=== PATIENT | female | born 1975 | race Caucasian/White ===

== ENCOUNTER 2017-09-20 13:05 | Emergency (ER) | payer OTHER ==
[~2017-09-20] VITALS: Ht 162.5 cm; Wt 74.8 kg
[~2017-09-20 13:05] MED LIST: BACTRIM DS 8001 TA1 PO; CLARITHROMYCIN500 MG PO; COUMADIN7.5 M1 PO; HYDROCODONE BIT1 T11 PO; KEFLEX500 MG PO; MOTRIN800 MG PO; NAPROSYN500 MG PO; RINGWORM14.2 GM TP; Septra Ds 800 M1 TAB PO; TRAMADOL HCL50 MG PO; VICODIN 5/500 505 MG PO; VISTARIL25 MG PO
[2017-09-20 13:53] LABS: BASO # 0.1 10*3/uL (0.0-0.1); BASO % 0.6 % (0.0-1.0); EOS # 0.1 10*3/uL (0.0-0.4); HEMATOCRIT 40.6 % (37.0-47.0); HEMOGLOBIN 13.7 g/dl (12.0-16.0); LYMPH # 2.5 10*3/uL (1.3-4.4); LYMPH % 24.8 % (27.0-41.0); MEAN CELL VOLUME 93.3 fl (81.0-99.0); MEAN CORPUSCULAR HGB 31.5 pg (27.0-31.0); MEAN CORPUSCULAR HGB CONC 33.7 g/dl (33.0-37.0); MEAN PLATELET VOLUME 10.3 fl (9.6-12.3); MONO % 9.9 % (3.0-9.0); NEUT # 6.3 10*3/uL (2.3-7.9); NEUT % 63.4 % (47.0-73.0); PLATELET COUNT AUTOMATED 269 10*3/uL (130-400); RED BLOOD COUNT 4.35 10*6/uL (4.10-5.10); RED CELL DISTRI WIDTH 14.3 % (0-14.5)
[2017-09-20 14:04] LABS: ACT PARTIAL THROMBO TIME 24.4 SECONDS (20.8-31.5)
[2017-09-20 14:09] LABS: ALBUMIN 3.7 gm/dl (3.1-4.5); ALKALINE PHOSPHATASE 137 U/L (45-117); BUN 10 mg/dl (7-24); CHLORIDE 105 mmol/L (98-107); CREATININE 0.82 mg/dL (0.55-1.02); LIPASE 124 U/L (73-393); POTASSIUM 3.6 mmol/L (3.5-5.1); SGOT/AST 20 IU/L (3-35); SGPT/ALT 29 U/L (12-78); SODIUM 138 mmol/L (136-145); TOTAL PROTEIN 7.5 gm/dL (6.4-8.2)
[2017-09-20 14:12] LABS: TROPONIN I < 0.015 ng/ml (<0.045)
[2017-09-20 14:27] LABS: BETA-HCG, QUANT < 1.0 mIU/mL (1-3)
[2017-09-20 18:05] VITALS: BP 123/83
[2017-09-20] MEDS ORDERED: Motrin,Rufen800 MG PO (18:18)
[2017-09-20] MEDS ORDERED: CYCLOBENZAPRINE10 MG PO (18:18)
== END 2017-09-20 18:36 | disposition home or self-care (01) ==
LOC: ED 13:05
PROVIDERS: Emergency Medicine
DX: S29.011A Strain of muscle and tendon of front wall of thorax, initial encounter (principal); F17.200 Nicotine dependence, unspecified, uncomplicated; F10.10 Alcohol abuse, uncomplicated; X58.XXXA Exposure to other specified factors, initial encounter; Y93.89 Activity, other specified; Y92.89 Other specified places as the place of occurrence of the external cause; Y99.0 Civilian activity done for income or pay

== ENCOUNTER → 2017-09-21 | Outpatient (CLI) | payer OTHER ==
[~2017-09-21] MED LIST changes: +CYCLOBENZAPRINE10 MG PO; +Motrin,Rufen800 MG PO
== END | disposition home or self-care (01) ==
LOC: ORTHO
DX: M25.562 Pain in left knee (principal)

== ENCOUNTER 2017-10-16 08:00 | Emergency (ER) | payer OTHER ==
[~2017-10-16] VITALS: Ht 162.5 cm; Wt 72.6 kg
[~2017-10-16 08:00] MED LIST changes: -IBUPROFEN600 MG PO; -TOPCARE PAIN R500 MG PO
[2017-10-16 08:06] VITALS: BP 107/78
[2017-10-16] MEDS ORDERED: TOPCARE PAIN R500 MG PO (10:53)
[2017-10-16] MEDS ORDERED: IBUPROFEN600 MG PO (10:53)
== END 2017-10-16 10:22 | disposition home or self-care (01) ==
LOC: ED 08:00
DX: S82.52XA Displaced fracture of medial malleolus of left tibia, initial encounter for closed fracture (principal); F17.200 Nicotine dependence, unspecified, uncomplicated; W00.0XXA Fall on same level due to ice and snow, initial encounter; Y93.89 Activity, other specified; Y92.89 Other specified places as the place of occurrence of the external cause; Y99.8 Other external cause status

== ENCOUNTER → 2017-10-16 | Outpatient (CLI) | payer OTHER ==
[~2017-10-16] MED LIST changes: +IBUPROFEN600 MG PO; +TOPCARE PAIN R500 MG PO
== END | disposition home or self-care (01) ==
LOC: ORTHO 14:32 → LAB 14:32
DX: E55.9 Vitamin D deficiency, unspecified (principal)

== ENCOUNTER → 2017-10-22 | Outpatient (CLI) | payer OTHER ==
[~2017-10-22] MED LIST changes: +IBUPROFEN600 MG PO; +TOPCARE PAIN R500 MG PO
== END | disposition home or self-care (01) ==
LOC: CT 07:47
DX: S82.52XA Displaced fracture of medial malleolus of left tibia, initial encounter for closed fracture (principal); X58.XXXA Exposure to other specified factors, initial encounter; Y93.89 Activity, other specified; Y92.89 Other specified places as the place of occurrence of the external cause; Y99.8 Other external cause status

== ENCOUNTER 2018-02-16 10:48 | Emergency (ER) | payer OTHER ==
[~2018-02-16] VITALS: Ht 162.5 cm; Wt 74.8 kg
[2018-02-16 10:51] VITALS: BP 124/85
[2018-02-16] MEDS ORDERED: IBU800 MG PO (12:27)
== END 2018-02-16 12:06 | disposition home or self-care (01) ==
LOC: ED 10:48
DX: S93.402A Sprain of unspecified ligament of left ankle, initial encounter (principal); Z90.49 Acquired absence of other specified parts of digestive tract; Z98.51 Tubal ligation status; Z79.899 Other long term (current) drug therapy; W10.9XXA Fall (on) (from) unspecified stairs and steps, initial encounter; Y93.89 Activity, other specified; Y92.89 Other specified places as the place of occurrence of the external cause; Y99.9 Unspecified external cause status

== ENCOUNTER 2018-03-17 16:17 | Emergency (ER) | payer OTHER ==
[~2018-03-17] VITALS: Ht 160 cm; Wt 74.8 kg
[~2018-03-17 16:17] MED LIST changes: +IBU800 MG PO
[2018-03-17 16:24] VITALS: BP 127/87
== END 2018-03-17 18:23 | disposition home or self-care (01) ==
LOC: ED 16:17
DX: M25.572 Pain in left ankle and joints of left foot (principal); R60.0 Localized edema; Z90.49 Acquired absence of other specified parts of digestive tract; Z98.51 Tubal ligation status

== ENCOUNTER 2018-11-19 13:37 | Emergency (ER) | payer OTHER ==
[~2018-11-19] VITALS: Ht 162.5 cm; Wt 77.1 kg
[2018-11-19] MEDS ORDERED: Motrin,Rufen800 MG PO (16:25)
== END 2018-11-19 16:35 | disposition home or self-care (01) ==
LOC: ED 13:37
DX: S83.92XA Sprain of unspecified site of left knee, initial encounter (principal); S93.402A Sprain of unspecified ligament of left ankle, initial encounter; S93.602A Unspecified sprain of left foot, initial encounter; F17.200 Nicotine dependence, unspecified, uncomplicated; W00.9XXA Unspecified fall due to ice and snow, initial encounter; Y93.89 Activity, other specified; Y92.89 Other specified places as the place of occurrence of the external cause; Y99.8 Other external cause status

== ENCOUNTER 2020-10-16 12:26 | Emergency (ER) | payer OTHER ==
[~2020-10-16] VITALS: Ht 160 cm; Wt 77.1 kg
[2020-10-16 12:33] VITALS: BP 125/90
[2020-10-16] MEDS ORDERED: NAPROSYN500 MG PO (14:19)
== END 2020-10-16 14:33 | disposition home or self-care (01) ==
LOC: ED 12:26
DX: M25.461 Effusion, right knee (principal); R60.0 Localized edema

== ENCOUNTER → 2020-10-24 | Outpatient (CLI) | payer OTHER | END | disposition home or self-care (01) | LOC: US 10:53 | PROVIDERS: ATTEND Orthopaedic Surgery | DX: M25.861 Other specified joint disorders, right knee (principal); M79.661 Pain in right lower leg ==

== ENCOUNTER → 2020-11-12 | Outpatient (CLI) | payer OTHER ==
[2020-11-12 07:54] LABS: BUN 9 mg/dl (7-24); CHLORIDE 101 mmol/L (98-107); CREATININE 0.54 mg/dL (0.55-1.02); POTASSIUM 3.9 mmol/L (3.5-5.1); SODIUM 138 mmol/L (136-145)
== END | disposition home or self-care (01) ==
LOC: MRI 11-09 11:00 → LAB 07:25 → MRI 08:00
PROVIDERS: ATTEND Orthopaedic Surgery
DX: M79.604 Pain in right leg (principal)

== ENCOUNTER → 2020-12-06 | Outpatient (CLI) | payer OTHER ==
[~2020-12-06] MED LIST changes: +ALEVE220 MG PO; +PRILOSEC20 M1 PO
== END | disposition home or self-care (01) ==
LOC: COVID19 12:42
PROVIDERS: ATTEND Orthopaedic Surgery
DX: Z01.812 Encounter for preprocedural laboratory examination (principal); Z20.822 Contact with and (suspected) exposure to COVID-19

== ENCOUNTER → 2020-12-11 | Day surgery (SDC) | payer OTHER ==
[~2020-12-11] VITALS: Ht 162.5 cm; Wt 77.1 kg
[2020-12-11 10:42] VITALS: BP 111/69
[2020-12-11 12:43] VITALS: BP 130/83
[2020-12-11 12:58] VITALS: BP 123/73
[2020-12-11 13:13] VITALS: BP 124/79
== END ==
LOC: SDC 12-06 11:00
PROVIDERS: ATTEND Orthopaedic Surgery
DX: M71.21 Synovial cyst of popliteal space [Baker], right knee (principal); M17.11 Unilateral primary osteoarthritis, right knee; K21.9 Gastro-esophageal reflux disease without esophagitis; Z90.49 Acquired absence of other specified parts of digestive tract; Z86.711 Personal history of pulmonary embolism; Z98.51 Tubal ligation status; Z79.899 Other long term (current) drug therapy

== ENCOUNTER 2022-02-09 20:33 | Emergency (ER) | payer OTHER ==
[~2022-02-09] VITALS: Ht 160 cm; Wt 72.6 kg
[2022-02-09 20:46] VITALS: BP 152/107
== END 2022-02-09 21:54 | disposition home or self-care (01) ==
LOC: ED 20:33
DX: S92.354A Nondisplaced fracture of fifth metatarsal bone, right foot, initial encounter for closed fracture (principal); Z79.899 Other long term (current) drug therapy; Z90.49 Acquired absence of other specified parts of digestive tract; X58.XXXA Exposure to other specified factors, initial encounter; Y93.89 Activity, other specified; Y92.89 Other specified places as the place of occurrence of the external cause; Y99.8 Other external cause status

== ENCOUNTER → 2022-03-05 | Outpatient (CLI) | payer OTHER | END | disposition home or self-care (01) | LOC: US 13:30 | PROVIDERS: ATTEND Orthopaedic Surgery | DX: E87.70 Fluid overload, unspecified (principal) ==

== ENCOUNTER → 2022-03-10 | Outpatient (CLI) | payer OTHER ==
[~2022-03-10] MED LIST changes: +VIBRAMYCIN100 MG PO
== END | disposition home or self-care (01) ==
LOC: MRI 11:00
PROVIDERS: ATTEND Orthopaedic Surgery
DX: E87.70 Fluid overload, unspecified (principal)

== ENCOUNTER 2022-03-18 09:36 | Emergency (ER) | payer OTHER ==
[~2022-03-18] VITALS: Ht 160 cm; Wt 73.9 kg
[~2022-03-18 09:36] MED LIST changes: -VIBRAMYCIN100 MG PO
[2022-03-18 09:58] VITALS: BP 127/86
[2022-03-18] MEDS ORDERED: VIBRAMYCIN100 MG PO (13:58)
== END 2022-03-18 14:10 | disposition home or self-care (01) ==
LOC: ED 09:36
DX: L02.612 Cutaneous abscess of left foot (principal)

== ENCOUNTER → 2022-03-21 | Outpatient (CLI) | payer OTHER ==
[~2022-03-21] MED LIST changes: +VIBRAMYCIN100 MG PO
== END ==
LOC: WOUNDCARE 00:53
PROVIDERS: ATTEND Podiatrist
DX: L97.522 Non-pressure chronic ulcer of other part of left foot with fat layer exposed (principal); L02.612 Cutaneous abscess of left foot; M19.172 Post-traumatic osteoarthritis, left ankle and foot; M72.2 Plantar fascial fibromatosis; M25.571 Pain in right ankle and joints of right foot; F17.200 Nicotine dependence, unspecified, uncomplicated; Z90.49 Acquired absence of other specified parts of digestive tract

== ENCOUNTER → 2022-03-28 | Outpatient (CLI) | payer OTHER | END | disposition home or self-care (01) | LOC: WOUNDCARE 02:08 | PROVIDERS: ATTEND Podiatrist Foot & Ankle Surgery | DX: L97.522 Non-pressure chronic ulcer of other part of left foot with fat layer exposed (principal); L02.612 Cutaneous abscess of left foot; M19.172 Post-traumatic osteoarthritis, left ankle and foot; M72.2 Plantar fascial fibromatosis; M25.571 Pain in right ankle and joints of right foot; F17.200 Nicotine dependence, unspecified, uncomplicated; Z90.49 Acquired absence of other specified parts of digestive tract ==

== ENCOUNTER → 2022-04-14 | Outpatient (CLI) | payer OTHER | END | disposition home or self-care (01) | LOC: RAD 13:41 | PROVIDERS: ATTEND Orthopaedic Surgery | DX: M84.463A Pathological fracture, right fibula, initial encounter for fracture (principal) ==

== ENCOUNTER → 2022-06-23 | Outpatient (CLI) | payer OTHER | LOC: ORTHO 03:23 | PROVIDERS: ATTEND Orthopaedic Surgery | DX: S82.401D Unspecified fracture of shaft of right fibula, subsequent encounter for closed fracture with routine healing (principal); M81.0 Age-related osteoporosis without current pathological fracture; X58.XXXD Exposure to other specified factors, subsequent encounter ==

== ENCOUNTER → 2022-07-21 | Outpatient (CLI) | payer OTHER | END | disposition home or self-care (01) | LOC: LAB 14:36 | DX: M81.0 Age-related osteoporosis without current pathological fracture (principal) ==

== ENCOUNTER 2022-07-31 23:42 | Emergency (ER) | payer OTHER ==
[~2022-07-31] VITALS: Ht 160 cm; Wt 59.0 kg
[2022-07-31 23:42] VITALS: BP 134/78
== END 2022-08-01 01:18 ==
LOC: ED 23:42
DX: S00.33XA Contusion of nose, initial encounter (principal); Z90.49 Acquired absence of other specified parts of digestive tract; Z98.51 Tubal ligation status; Y08.89XA Assault by other specified means, initial encounter; Y93.89 Activity, other specified; Y92.89 Other specified places as the place of occurrence of the external cause; Y99.8 Other external cause status

== ENCOUNTER → 2022-10-22 | Outpatient (CLI) | payer OTHER | END | disposition home or self-care (01) | LOC: ORTHO 02:36 | PROVIDERS: ATTEND Orthopaedic Surgery | DX: S93.601A Unspecified sprain of right foot, initial encounter (principal); M19.071 Primary osteoarthritis, right ankle and foot; X58.XXXA Exposure to other specified factors, initial encounter; Y93.89 Activity, other specified; Y92.89 Other specified places as the place of occurrence of the external cause; Y99.8 Other external cause status ==

== ENCOUNTER → 2022-11-21 | Outpatient (CLI) | payer OTHER | END | disposition home or self-care (01) | LOC: ORTHO 01:40 | PROVIDERS: ATTEND Orthopaedic Surgery | DX: S82.392D Other fracture of lower end of left tibia, subsequent encounter for closed fracture with routine healing (principal); M19.072 Primary osteoarthritis, left ankle and foot; X58.XXXD Exposure to other specified factors, subsequent encounter ==

== ENCOUNTER → 2022-12-03 | Outpatient (CLI) | payer OTHER | END | disposition home or self-care (01) | LOC: MAMMO 12-01 10:30 | PROVIDERS: ATTEND Internal Medicine Nephrology | DX: Z12.31 Encounter for screening mammogram for malignant neoplasm of breast (principal) ==

== ENCOUNTER → 2022-12-24 | Outpatient (CLI) | payer MEDICAID | END | disposition home or self-care (01) | LOC: LAB 14:00 | PROVIDERS: ATTEND Orthopaedic Surgery | DX: M81.0 Age-related osteoporosis without current pathological fracture (principal); E55.9 Vitamin D deficiency, unspecified ==

== ENCOUNTER → 2023-02-10 | Outpatient (CLI) | payer MEDICAID ==
[2023-02-11 05:06] LABS: HBSAG Negative (Negative); HEP B CORE AB, IGM Negative (Negative); HEPATITIS C ANTIBODY Non Reactive (Non Reactive)
== END | disposition home or self-care (01) ==
LOC: LAB 10:24
PROVIDERS: ATTEND Internal Medicine Nephrology
DX: Z11.3 Encounter for screening for infections with a predominantly sexual mode of transmission (principal)

== ENCOUNTER → 2023-02-12 | Outpatient (CLI) | payer MEDICAID | END | disposition home or self-care (01) | LOC: LAB 10:21 | PROVIDERS: ATTEND Internal Medicine Nephrology | DX: Z11.3 Encounter for screening for infections with a predominantly sexual mode of transmission (principal) ==

== ENCOUNTER → 2023-03-24 | Outpatient (CLI) | payer MEDICAID ==
[~2023-03-24] MED LIST changes: +BUSPAR5 MG PO; +GABAPENTIN800 MG PO; +VITAMIN D310 MC2 PO; +[UNRECOGNIZED DRUG - OTHER] PO
== END | disposition home or self-care (01) ==
LOC: RAD 11:20
PROVIDERS: ATTEND Orthopaedic Surgery
DX: M19.071 Primary osteoarthritis, right ankle and foot (principal)

== ENCOUNTER → 2023-03-26 | Day surgery (SDC) | payer MEDICAID ==
[2023-03-24 12:16] LABS: BUN 11 mg/dl (9-23); CHLORIDE 104 mmol/L (98-107); POTASSIUM 3.3 mmol/L (3.4-5.1)
[~2023-03-26] VITALS: Ht 160 cm; Wt 74.4 kg
[2023-03-26 06:45] VITALS: BP 115/81
[2023-03-26 08:04] VITALS: BP 111/74
[2023-03-26 08:19] VITALS: BP 115/78
[2023-03-26 08:34] VITALS: BP 111/72
== END ==
LOC: SDC 03-23 10:15
PROVIDERS: ATTEND Orthopaedic Surgery
DX: G56.03 Carpal tunnel syndrome, bilateral upper limbs (principal); M71.20 Synovial cyst of popliteal space [Baker], unspecified knee; J45.909 Unspecified asthma, uncomplicated; K21.9 Gastro-esophageal reflux disease without esophagitis; Z86.711 Personal history of pulmonary embolism; F41.9 Anxiety disorder, unspecified; F32.A Depression, unspecified; F17.210 Nicotine dependence, cigarettes, uncomplicated; Z98.51 Tubal ligation status; Z90.49 Acquired absence of other specified parts of digestive tract; Z98.890 Other specified postprocedural states

== ENCOUNTER 2023-04-12 12:52 | Emergency (ER) | payer MEDICAID ==
[~2023-04-12] VITALS: Ht 160 cm; Wt 74.8 kg
[2023-04-12 13:36] VITALS: BP 124/84
[2023-04-12] MEDS ORDERED: VIBRAMYCIN HYC100 MG PO (14:33)
== END 2023-04-12 15:09 | disposition home or self-care (01) ==
LOC: ED 12:52
DX: T81.40XA Infection following a procedure, unspecified, initial encounter (principal); Z88.8 Allergy status to other drugs, medicaments and biological substances; Z90.49 Acquired absence of other specified parts of digestive tract; Z98.51 Tubal ligation status; Z98.890 Other specified postprocedural states; Z87.891 Personal history of nicotine dependence

== ENCOUNTER → 2023-05-13 | Outpatient (CLI) | payer MEDICAID ==
[~2023-05-13] MED LIST changes: +VIBRAMYCIN HYC100 MG PO
== END | disposition home or self-care (01) ==
LOC: RAD 12:07
PROVIDERS: ATTEND Internal Medicine Nephrology
DX: M79.89 Other specified soft tissue disorders (principal)

== ENCOUNTER → 2023-10-14 | Outpatient (CLI) | payer OTHER ==
[2023-10-15 07:07] LABS: HEPATITIS B SURFACE AG Negative (Negative)
== END | disposition home or self-care (01) ==
LOC: LAB 15:53
PROVIDERS: ATTEND Internal Medicine Nephrology
DX: Z20.2 Contact with and (suspected) exposure to infections with a predominantly sexual mode of transmission (principal)

== ENCOUNTER → 2023-10-21 | Outpatient (CLI) | payer OTHER | END | disposition home or self-care (01) | LOC: US 12:32 | PROVIDERS: ATTEND Podiatrist | DX: I73.9 Peripheral vascular disease, unspecified (principal); I10 Essential (primary) hypertension ==

== ENCOUNTER → 2024-02-01 | Outpatient (CLI) | payer OTHER | END | disposition home or self-care (01) | LOC: ORTHO 02:44 | PROVIDERS: ATTEND Orthopaedic Surgery | DX: M19.071 Primary osteoarthritis, right ankle and foot (principal); M79.89 Other specified soft tissue disorders; M21.6X1 Other acquired deformities of right foot ==

== ENCOUNTER → 2024-03-24 | Outpatient (CLI) | payer OTHER | END | disposition home or self-care (01) | LOC: MAMMO 10:04 | PROVIDERS: ATTEND Internal Medicine Nephrology | DX: Z12.31 Encounter for screening mammogram for malignant neoplasm of breast (principal) ==

== ENCOUNTER 2024-06-07 10:30 | Emergency (ER) | payer OTHER ==
[~2024-06-07] VITALS: Ht 160 cm; Wt 68.0 kg
[2024-06-07 10:59] VITALS: BP 117/86
[2024-06-07] MEDS ORDERED: BUSPIRONE15 MG PO (11:00)
[2024-06-07] MEDS ORDERED: CYMBALTA60 MG PO (11:01)
[2024-06-07] MEDS ORDERED: TOPAMAX50 MG PO (11:01)
[2024-06-07] MEDS ORDERED: CEPHALEXIN500 M1 PO (11:12)
== END 2024-06-07 12:22 | disposition home or self-care (01) ==
LOC: ED 10:30
DX: S91.312A Laceration without foreign body, left foot, initial encounter (principal); Z91.048 Other nonmedicinal substance allergy status; Z79.899 Other long term (current) drug therapy; Z90.49 Acquired absence of other specified parts of digestive tract; Z98.51 Tubal ligation status; W22.8XXA Striking against or struck by other objects, initial encounter; Y93.89 Activity, other specified; Y92.89 Other specified places as the place of occurrence of the external cause; Y99.8 Other external cause status

== ENCOUNTER 2024-11-21 16:04 | Emergency (ER) | payer OTHER ==
[~2024-11-21] VITALS: Ht 160 cm; Wt 83.9 kg
[~2024-11-21 16:04] MED LIST changes: +BUSPIRONE15 MG PO; +CEPHALEXIN500 M1 PO; +CYMBALTA60 MG PO; +TOPAMAX50 MG PO
[2024-11-21 16:14] VITALS: BP 161/94
[2024-11-21] MEDS ORDERED: Acetaminophen/Hydrocodone 5 MG/325 MG TABLET PO ONE (16:25)
== END 2024-11-21 18:02 | disposition home or self-care (01) ==
LOC: ED 16:04
DX: M19.071 Primary osteoarthritis, right ankle and foot (principal); K21.9 Gastro-esophageal reflux disease without esophagitis; J45.909 Unspecified asthma, uncomplicated; F41.9 Anxiety disorder, unspecified; Z91.048 Other nonmedicinal substance allergy status; Z90.49 Acquired absence of other specified parts of digestive tract; Z98.51 Tubal ligation status; Z98.890 Other specified postprocedural states

== ENCOUNTER → 2024-11-25 | Outpatient (CLI) | payer OTHER | END | disposition home or self-care (01) | LOC: US 10:56 | PROVIDERS: ATTEND Internal Medicine Nephrology | DX: N39.3 Stress incontinence (female) (male) (principal); R30.0 Dysuria; R35.0 Frequency of micturition ==

== ENCOUNTER → 2025-01-26 | Outpatient (CLI) | payer OTHER | END | disposition home or self-care (01) | LOC: US 07:54 | PROVIDERS: ATTEND Internal Medicine Nephrology | DX: K76.0 Fatty (change of) liver, not elsewhere classified (principal); R10.31 Right lower quadrant pain; Z90.49 Acquired absence of other specified parts of digestive tract ==

== ENCOUNTER 2025-07-17 10:57 | Emergency (ER) | payer OTHER ==
[~2025-07-17] VITALS: Ht 160 cm; Wt 81.6 kg
[2025-07-17 11:40] VITALS: BP 113/77
[2025-07-17] MEDS ORDERED: PREDNISONE10 M1 PO (12:41)
== END 2025-07-17 13:13 | disposition home or self-care (01) ==
LOC: ED 10:57
DX: L23.7 Allergic contact dermatitis due to plants, except food (principal); Z90.49 Acquired absence of other specified parts of digestive tract; Z88.8 Allergy status to other drugs, medicaments and biological substances